=== PATIENT | male | born 1975 | race Caucasian/White ===

== ENCOUNTER 2024-10-17 06:48 | Inpatient (IN) | payer OTHER ==
[~2024-10-17] VITALS: Ht 175.3 cm; Wt 68.9 kg
[~2024-10-17 06:48] MED LIST: LACT-390 PO; PANT40VI IV; PROP10TA10 PO; RIFA550T PO; SPIR25TA PO; SUCR1TAB PO
[2024-10-17] MEDS ORDERED: CEFTRIAXONE 1GM/50ML 50 ML IV ONE (07:30)
[2024-10-17] MEDS ORDERED: PANTOPRAZOLE 80 MG in SODIUM CHLORIDE 0.9% 100 ML IV SCH (07:30)
[2024-10-17 08:36] LABS: BASOPHILS % 0.7 % (0.0-2.0); EOSINOPHILS % 1.1 % (0.0-5.0); HEMATOCRIT. 38.4 % (42.0-52.0); HEMOGLOBIN. 13.2 g/dL (14.0-18.0); LYMPHOCYTES % 13.6 % (20.0-50.0); MEAN PLATELET VOLUME 7.8 fl (7.4-10.4); MONOCYTES % 8.6 % (2.0-8.0); NEUTROPHILS % 76.0 % (40.0-76.0); RED BLOOD CELL COUNT 4.08 mill/uL (4.7-6.1); RED CELL DISTRIBUTION WIDTH 18.3 % (11.6-14.6)
[2024-10-17 08:44] LABS: CREATININE 0.6 mg/dL (0.6-1.3)
[2024-10-17 08:45] LABS: UREA NITROGEN BLOOD < 5 mg/dL (9-23)
[2024-10-17 08:46] LABS: ASPARTATE AMINOTRANSFERASE 59 IU/L (<34)
[2024-10-17 08:47] LABS: BILIRUBIN DIRECT 1.4 mg/dL (<=3.0); BILIRUBIN TOTAL 2.7 mg/dL (0.1-1.0); PROTEIN TOTAL 6.6 g/dL (6.0-8.3)
[2024-10-17] MEDS: MORPHINE SULFATE 4 MG/ML INJ (FOR IV/IM USE) IV ONE (09:32)
[2024-10-17] MEDS: ONDANSETRON HCL 4MG/2ML INJ IV ONE (09:50)
[2024-10-17] MEDS: PANTOPRAZOLE SODIUM 40 MG/VIAL IV ONE (10:10)
[2024-10-17] MEDS: CEFTRIAXONE 1GM/50ML 50 ML IV NR (10:22)
[2024-10-17] MEDS: OCTREOTIDE 1,000 MCG in SODIUM CHLORIDE 0.9% 98 ML IV ONE (11:27)
[2024-10-17 12:00] VITALS: BP 116/64; PULSE 58; RESP 18; TEMP 36.2; O2SAT 100
[2024-10-17] MEDS ORDERED: NALOXONE HCL 0.4MG/ML VIAL IV PRN ×2 (13:15→17:30)
[2024-10-17 13:24] LABS: PLATELET 24 x1000/uL (130-400)
[2024-10-17] MEDS: HYDROCODONE/ACETAMINOPHEN 10/325MG TABLET PO PRN (13:47)
[2024-10-17] MEDS: ONDANSETRON HCL 4MG/2ML INJ IV PRN (13:47)
[2024-10-17] MEDS ORDERED: LOPE2CAP MT (14:02)
[2024-10-17] MEDS ORDERED: ONDA4TAB50 MT (14:02)
[2024-10-17] MEDS ORDERED: SPIR25TA MT (14:02)
[2024-10-17] MEDS ORDERED: DOCU-138 MT (14:02)
[2024-10-17] MEDS ORDERED: SUCR1TAB30 MT (14:02)
[2024-10-17] MEDS ORDERED: POTA-354 MT (14:02)
[2024-10-17] MEDS ORDERED: SPIR25TA PO (14:02)
[2024-10-17] MEDS ORDERED: SENN-362 MT ×2 (14:02)
[2024-10-17] MEDS ORDERED: FURO40TA5 MT (14:02)
[2024-10-17] MEDS ORDERED: PROP10TA10 MT (14:02)
[2024-10-17] MEDS ORDERED: PANT40TA51 MT (14:02)
[2024-10-17] MEDS ORDERED: AMYL1CAP59 MT (14:23)
[2024-10-17] MEDS ORDERED: HYDR2TAB7 MT (14:23)
[2024-10-17] MEDS ORDERED: CLON1TAB2 MT (14:23)
[2024-10-17 16:00] VITALS: BP 119/76; PULSE 64; RESP 18; TEMP 36.3; O2SAT 99
[2024-10-17 16:23] VITALS: BP 122/83; PULSE 83; RESP 18; TEMP 36.6404
[2024-10-17 20:00] VITALS: BP 120/68; PULSE 63; RESP 18; TEMP 36.8; O2SAT 99
[2024-10-17 20:42] LABS: HEPATITIS C AB NON REACTIVE (Neg) (Negative)
[2024-10-17] MEDS: HEMORRHOIDAL SUPP PR SCH (21:00)
[2024-10-17] MEDS: PANTOPRAZOLE SODIUM 40 MG/VIAL IV SCH (21:26)
[2024-10-18] VITALS: BP 118/64; PULSE 61; RESP 18; TEMP 36.7; O2SAT 99
[2024-10-18 08:00] VITALS: BP 137/85; PULSE 83; RESP 18; TEMP 36.5; O2SAT 98
[2024-10-18 09:45] LABS: HEMATOCRIT. 34.1 % (42.0-52.0); HEMOGLOBIN. 12.0 g/dL (14.0-18.0); MEAN PLATELET VOLUME 8.4 fl (7.4-10.4); RED BLOOD CELL COUNT 3.64 mill/uL (4.7-6.1); RED CELL DISTRIBUTION WIDTH 17.9 % (11.6-14.6)
[2024-10-18 09:53] LABS: PLATELET 20 x1000/uL (130-400)
[2024-10-18 10:05] LABS: CREATININE 0.5 mg/dL (0.6-1.3)
[2024-10-18 10:06] LABS: INR 1.3; UREA NITROGEN BLOOD 6 mg/dL (9-23)
[2024-10-18 10:07] LABS: ASPARTATE AMINOTRANSFERASE 45 IU/L (<34)
[2024-10-18 10:08] LABS: BILIRUBIN TOTAL 3.9 mg/dL (0.1-1.0); PROTEIN TOTAL 5.7 g/dL (6.0-8.3)
[2024-10-18 12:00] VITALS: BP 135/79; PULSE 86; RESP 18; TEMP 36.7; O2SAT 96
[2024-10-18] MEDS ORDERED: *PATIENT'S OWN MEDICATION STORAGE XX SCH (14:45)
[2024-10-18] MEDS: POTASSIUM CHLORIDE 20MEQ TABLET SR PO SCH (15:11)
[2024-10-18 16:00] VITALS: BP 142/90; PULSE 82; RESP 18; TEMP 36.7; O2SAT 89
[2024-10-18] MEDS ORDERED: METOCLOPRAMIDE HCL 10MG/2ML VIAL IV SCH (16:00)
[2024-10-18 18:37] LABS: LYMPHOCYTES % MANUAL 14.0 % (20.0-50.0); MONOCYTES % MANUAL 10.0 % (2.0-8.0); NEUTROPHILS % MANUAL 76.0 % (45.0-75.0); PLATELET ESTIMATE DECREASED
[2024-10-18] MEDS: PROCHLORPERAZINE 10MG/2ML VIAL IV PRN (19:13)
[2024-10-18 20:00] VITALS: BP 108/76; PULSE 96; RESP 18; TEMP 36.6; O2SAT 97
[2024-10-18] MEDS: MORPHINE SULFATE 2 MG/ML INJ (NOT FOR IM USE) IV SCH (22:01)
[2024-10-19] VITALS (9 sets, daily range): BP systolic 109–129; BP diastolic 71–89; PULSE 92–107; RESP 16–20; TEMP 36.4–37.2; O2SAT 96–100
[2024-10-19 08:07] LABS: BASOPHILS % 0.8 % (0.0-2.0); EOSINOPHILS % 1.7 % (0.0-5.0); HEMATOCRIT. 34.7 % (42.0-52.0); HEMOGLOBIN. 12.0 g/dL (14.0-18.0); LYMPHOCYTES % 9.7 % (20.0-50.0); MEAN PLATELET VOLUME 8.2 fl (7.4-10.4); MONOCYTES % 5.1 % (2.0-8.0); NEUTROPHILS % 82.7 % (40.0-76.0); RED BLOOD CELL COUNT 3.70 mill/uL (4.7-6.1); RED CELL DISTRIBUTION WIDTH 18.1 % (11.6-14.6)
[2024-10-19] MEDS: HYDROCODONE/ACETAMINOPHEN 10/325MG TABLET PO PRN (08:08)
[2024-10-19 08:23] LABS: CREATININE 0.7 mg/dL (0.6-1.3); UREA NITROGEN BLOOD 6 mg/dL (9-23)
[2024-10-19] MEDS: LACTULOSE 20G/30ML UDC PO SCH (08:26)
[2024-10-19 09:50] LABS: PLATELET 19 x1000/uL (130-400)
[2024-10-19 10:59] LABS: INR 1.3
[2024-10-19 11:05] LABS: ASPARTATE AMINOTRANSFERASE 54 IU/L (<34); BILIRUBIN DIRECT 1.2 mg/dL (<=3.0)
[2024-10-19 11:06] LABS: BILIRUBIN TOTAL 3.2 mg/dL (0.1-1.0); PROTEIN TOTAL 5.7 g/dL (6.0-8.3)
[2024-10-19] MEDS ORDERED: POTASSIUM CHLORIDE 20MEQ TABLET SR PO NR (12:45)
[2024-10-19] MEDS ORDERED: POTASSIUM CHLORIDE 20MEQ/PACKET PO SCH (17:30)
== END 2024-10-19 19:05 | disposition hospice, home (50) | DRG 280 ==
LOC: ER 06:48 → 7WST 09:06 → EDBEDREQ 09:13 → EDBEDREQTM 09:13 → EDBEDREQSVC 10:54 → ENRESERV 11:11
PROVIDERS: ADMIT Internal Medicine; ATTEND Internal Medicine
PROC: 30233R1 Transfusion of Nonautologous Platelets into Peripheral Vein, Percutaneous Approach (ICD-10-PCS; principal; 2024-10-19)
DX: K70.30 Alcoholic cirrhosis of liver without ascites (principal); I82.0 Budd-Chiari syndrome; D61.818 Other pancytopenia; D68.9 Coagulation defect, unspecified; K76.6 Portal hypertension; E87.6 Hypokalemia; F10.10 Alcohol abuse, uncomplicated; R16.1 Splenomegaly, not elsewhere classified; F41.9 Anxiety disorder, unspecified; R19.7 Diarrhea, unspecified; F17.210 Nicotine dependence, cigarettes, uncomplicated; I10 Essential (primary) hypertension; K59.00 Constipation, unspecified; Z86.718 Personal history of other venous thrombosis and embolism; Z88.0 Allergy status to penicillin; Z95.828 Presence of other vascular implants and grafts; Z51.5 Encounter for palliative care; Y90.9 Presence of alcohol in blood, level not specified
CPT/HCPCS: 36415; 74176; 76705; 80048; 80053; 80076; 82140; 82728; 83540; 83550; 85014; 85018; 85025; 85049; 86705; 86850; 86900; 87340; 99291; A4606; J0696; J0780; J2270; J2354; J2405; J2470; J7050; P9034